=== PATIENT | female | born 1970 | race Two or more races ===

== ENCOUNTER → 2024-09-15 | Outpatient (CLI) | payer MEDICARE, MEDICAID, SELFPAY ==
--- NOTE | 2024-09-15 10:00 | XR_ITS ---
Examination: Breast ultrasound complete, bilateral Date and time of exam: September 15, 2024 0957 hours INDICATIONS: Mammogram 04/26/2024 right breast 12 mm focal asymmetry upper outer and left breast retroareolar focal asymmetry 20 mm Technique: Real-time grayscale ultrasonographic imaging bilateral breasts, including all 4 quadrants as well as nipple retroareolar and axillary regions. Findings: Sonographic images right breast 9:00 oval mass partially circumscribed 13 x 11 x 15 mm 11:00 oval mass with indistinct margins 8 x 6 x 7 mm Sonographic images left breast 2:00 oval mass lobular margins 12 x 6 x 9 mm IMPRESSION: BI-RADS Category 4: Suspicious for malignancy Suspicious mass 11:00 position right breast, biopsy is needed to say breast carcinoma This mass is amenable to ultrasound-guided breast biopsy for diagnosis Also 6 month bilateral breast sonography follow-up is needed to document stability of solid nodules described above
--- NOTE | 2024-09-15 11:00 | XR_ITS ---
Examination: Diagnostic digital mammography, bilateral Computer aided detection 3-D breast Tomosynthesis, bilateral Date and time of exam: September 15, 2024 1023 hours INDICATIONS: Mammogram 04/26/2024 12 mm focal asymmetry upper outer right breast posterior depth 20 mm focal asymmetry retroareolar region left breast Technique: Nonmagnified MLO, CC views of the breasts to been obtained, reconstructed from 3-D Tomosynthesis images. R2 computer aided detection program utilized for evaluation of suspicious masses and/or abnormal calcifications. 3-D Tomosynthesis images obtained. Findings: The breasts are heterogeneously dense, which may obscure small masses No suspicious nodule left breast on the spot compression views 11:00 nodule right breast is noted, best seen on the right breast sonogram today Impression: BI-RADS Category 4: Suspicious for malignancy Suspicious nodule 11:00 position right breast best depicted on the right breast sonogram today Biopsy of this nodule is needed to exclude breast carcinoma This nodule is amenable to ultrasound-guided breast biopsy for diagnosis
== END | disposition home or self-care (01) ==
LOC: CDIM 09:31
PROVIDERS: PCP Internal Medicine; Referring Provider Internal Medicine; Visit Provider Internal Medicine
DX: R92.343 Mammographic extreme density, bilateral breasts (principal); N63.11 Unspecified lump in the right breast, upper outer quadrant; N63.15 Unspecified lump in the right breast, overlapping quadrants; N63.21 Unspecified lump in the left breast, upper outer quadrant
CPT/HCPCS: 76641; 77062; 77066; G0279

== ENCOUNTER → 2024-10-06 | Outpatient (CLI) | payer MEDICARE, MEDICAID, SELFPAY ==
[2024-10-06 12:04] LABS: Basophils # (Auto) 0.1 Thou/mm3 (0.0-0.2); Basophils % (Auto) 1 % (0-2.5); Eosinophils # (Auto) 0.1 Thou/mm3 (0.0-0.5); Eosinophils % (Auto) 1 % (0-10); Hematocrit 36.6 % (36.0-46.0); Hemoglobin 11.7 g/dL (12.0-16.0); Immature Granulocytes % (Auto) 0 % (0-0); Immature Granulocytes Auto 0.02 Thou/mm3 (0.00-0.00); Lymphocytes # (Auto) 3.9 Thou/mm3 (1.0-4.8); Lymphocytes % (Auto) 46 % (10-50); Mean Corpuscular Hemoglobin 25.9 pg (25.0-35.0); Mean Corpuscular Volume 81 fL (80-100); Monocytes # (Auto) 0.8 Thou/mm3 (0.0-0.8); Monocytes % (Auto) 9 % (0-12); Neutrophils # (Auto) 3.6 Thou/mm3 (1.8-7.7); Neutrophils % (Auto) 43 % (37-80); Nucleated Red Blood Cell % 0 /100 WBC (0); Platelet Count 437 Thou/mm3 (140-440); RDW Standard Deviation 45.3 fL (36.4-46.3); Red Blood Count 4.51 Miln/mm3 (4.00-5.20); White Blood Count 8.5 Thou/mm3 (3.6-11.0)
[2024-10-06 12:14] LABS: Glucose Estimated Average 189 mg/dL (80-131); Hemoglobin A1C 8.2 % Hgb (4.8-6.0)
[2024-10-06 12:16] LABS: Vitamin B12 592 pg/mL (211-911)
[2024-10-06 12:26] LABS: Alanine Aminotransferase 11 U/L (10-49); Albumin, Serum 4.3 gm/dL (3.5-5.0); Albumin/Globulin Ratio 1.5 (1.2-2.2); Alkaline Phosphatase 86 U/L (46-116); Anion Gap 14 (7-16); Aspartate Amino Transferase 15 U/L (0-34); BUN/Creatinine Ratio 18 Ratio (12-20); Bilirubin,Total 0.6 mg/dL (0.3-1.2); Blood Urea Nitrogen 14 mg/dL (9-23); Calcium 10.1 mg/dL (8.3-10.6); Calcium (Corrected) 10.1 mg/dL (8.5-10.1); Carbon Dioxide 25.5 mMol/L (20.0-31.0); Cardiac Risk Estimate 2.8 RATIO (3.7-5.6); Chloride 103 mMol/L (98-107); Cholesterol 192 mg/dL (132-200); Creatinine (Component) 0.8 mg/dL (0.6-1.3); Globulin 2.9 gm/dL (2.3-3.5); Glucose 112 mg/dL (74-106); HDL Cholesterol 69 mg/dL (40-60); LDL Cholesterol,Calculated 102 mg/dL (0-130); Osmolality,Calculated 284 (275-295); Potassium 4.2 mMol/L (3.4-5.1); Sodium 142 mMol/L (136-145); Thyroid Stimulating Hormone 2.99 uIU/mL (0.55-4.78); Total Protein 7.2 gm/dL (5.7-8.2); Triglycerides 104 mg/dL (30-150); Uric Acid 3.7 mg/dL (3.1-7.8); eGFR > 60 See Note
== END | disposition home or self-care (01) ==
LOC: COPL 11:15
PROVIDERS: PCP Internal Medicine; Referring Provider Internal Medicine; Visit Provider Internal Medicine
DX: E11.9 Type 2 diabetes mellitus without complications (principal); I10 Essential (primary) hypertension; E78.5 Hyperlipidemia, unspecified; D51.9 Vitamin B12 deficiency anemia, unspecified; E55.9 Vitamin D deficiency, unspecified
CPT/HCPCS: 36415; 80053; 80061; 81001; 82306; 82607; 83036; 84443; 84550; 85025

== ENCOUNTER 2024-11-03 09:49 | Emergency (ER) | payer MEDICARE, MEDICAID, SELFPAY ==
[2024-11-03 10:29] VITALS: BP 149/72; PULSE 114; RESP 17; TEMP 36.9; O2SAT 98
--- NOTE | 2024-11-03 10:32 | XR_ITS ---
Examination: Humerus 2 views right Technique: Humerus, AP lateral 2 views Date and time of exam: November 03, 2024 1058 hours INDICATIONS: Patient fell today with injury to the arm, right arm pain. FINDINGS: Acute fracture humeral neck,. Fracture extends to the greater tuberosity humeral head with displaced fracture fragment IMPRESSION: Acute fractures humeral head and neck No shoulder dislocation
--- NOTE | 2024-11-03 10:32 | XR_ITS ---
Examination: Shoulder,right, 3 views Technique: Shoulder AP internal rotation, AP external rotation, Y view shoulder, 3 views Exam date and time :November 03, 2024 1058 hours INDICATIONS: Patient fell today with injury to the shoulder, shoulder pain. FINDINGS: Acute fracture humeral neck Fracture extends to the humeral head with displaced greater tuberosity of the humeral head IMPRESSION: Acute fractures humeral neck and head
--- NOTE | 2024-11-03 11:12 | PD.EDUPEX ---
Upper Extremity Injury RME/HPI General Chief Complaint: Extremity Injury, Upper Stated Complaint: CAN'T MOVE RIGHT ARM Time Seen by Provider: 11/03/24 10:13 Source: patient Arrival date/time: 11/03/24 09:49 This is a 54-year-old female presented to the emergency department with family member for complaints of right upper shoulder pain. According to the family member the patient was ambulating and her foot got caught on a rug falling directly on her right shoulder. According to the family member the patient was complaining of shoulder pain was given Tylenol however noticed swelling and bruising today prompting her ED visit. No other injuries or pain reported by patient. Mode of arrival: ambulatory Limitations: no limitations Related Data Home Medications ?Medication ?Instructions ?Recorded ?Confirmed atorvastatin 20 mg tablet (Lipitor) 20 mg PO HS #0 tabs 10/25/16 08/14/21 ergocalciferol (vitamin D2) 1,250 50,000 unit PO QWEEK #0 caps 10/25/16 08/14/21 mcg (50,000 unit) capsule (Vitamin D2) metformin 850 mg tablet 850 mg PO BID #0 tabs 10/25/16 08/14/21 (Glucophage) losartan 100 mg tablet 100 mg PO QDAY 08/14/21 08/14/21 omeprazole 20 mg capsule,delayed 20 mg PO BID 08/14/21 08/14/21 release sucralfate 100 mg/mL oral 1 g PO BID 08/14/21 08/14/21 suspension (Carafate) Previous Rx's ?Medication ?Instructions ?Recorded acetaminophen 325 mg tablet (Pain 650 mg (2 x 325 mg) PO QID PRN 11/03/24 Relief (acetaminophen)) pain #20 tabs Allergies Allergy/AdvReac Type Severity Reaction Status Date / Time No Known Allergies Allergy Verified 11/03/24 09:51 Review of Systems Review of Systems Systems Reviewed: All systems reviewed, normal except as documented Narrative Review of Systems: Gen: No fever, no chills, no weight loss EYES: No discharge, no visual changes, no pain HEENT: No ear pain, no congestion, no sore throat PULM: No shortness of breath, no cough, no congestion CV: No chest pain, no dyspnea on exertion, no palpitations GI: No nausea, no vomiting, no diarrhea, no pain, no constipation : No frequency, no urgency, no dysuria Musc/skel:+ Right arm shoulder pain, no back pain Skin: No rash Psyc: No hallucinations, no depression Heme/Lymph: No easy bleeding or bruising tendencies Neuro: No weakness, no headache ED Exam General Limitations: Present no limitations General appearance: Present alert and in no apparent distress Head Head exam: Present atraumatic Eye Eye exam: Present normal appearance, PERRL and EOMI ENT ENT exam: Present normal exam, normal oropharynx and mucous membranes moist Neck Neck exam: Present normal inspection, full ROM and trachea midline Chest Chest inspection: Present normal inspection and symmetric chest wall rise Respiratory Respiratory exam: Present normal lung sounds bilaterally Cardiovascular Cardiovascular exam: Present regular rate, normal rhythm and normal heart sounds Abdominal Exam Abdominal exam: Present soft and normal bowel sounds; Absent distention, tenderness or guarding Extremities Exam Extremities exam: Present full ROM Expanded Upper Extremity Exam Shoulder exam: Present tenderness (Right shoulder tenderness palpation. Large ecchymosis noted to bicep area) and swelling Back Exam Back exam: Present normal inspection and full ROM Neurological Exam Neurological exam: Present alert, oriented X3 and CN II-XII intact Psychiatric Psychiatric exam: Present normal affect and normal mood Skin Skin exam: Present warm, dry, intact and normal color Course Quality Measures none Orders Category Date Time Status sling [Splint / Immobilizer] STAT Care 11/03/24 11:36 Completed XR humerus RT min 2V Stat Exams 11/03/24 10:32 Completed XR shoulder RT min 2V Stat Exams 11/03/24 10:32 Completed Acetaminophen Tab [Tylenol ES Tab] Med 11/03/24 11:36 Discontinued 1,000 mg PO X1 ONE Vital Signs Vital signs: Vital Signs Temperature 98.4 F 11/03/24 10:29 Pulse Rate 114 H 11/03/24 10:29 Respiratory Rate 17 11/03/24 10:29 Blood Pressure 149/72 H 11/03/24 10:29 Pulse Oximetry (%) 98 11/03/24 10:29 Oxygen Delivery Method Room Air 11/03/24 10:29 Extremity Injury MDM Narrative MDM Narrative:: 54-year-old female evaluated in the emergency department for complaints of right shoulder pain her x-ray does demonstrate acute neck and head fracture of right humeral head without significant displacement. Patient does not currently demonstrate complications of fracture such as compartment syndrome, arterial or nerve injury. Rx: Sling and Swathe I did place a call out to Dr. Soto who will gladly see her in her office on Wednesday at 3 PM for evaluation. Patient will be discharge with strict return precautions and instructions to follow up with primary MD within 48 hours for further evaluation including referral to an orthopedist. Patient data External records reviewed:: [facility] previous records Clinical information provided by:: patient Social determinants that could affect healthcare access:: none Patient has the following chronic illnesses:: Hypertension, hyperlipidemia, diabetes, mental delay How is presenting disease/condition affected by chronic disease/condition?: no chronic disease Evaluation data The following diagnostics were reviewed and interpreted by me:: radiology exam(s) Lab and/or radiology exams considered but not ordered:: no Interpretation Summary: Examination: Humerus 2 views right Technique: Humerus, AP lateral 2 views Date and time of exam: November 03, 2024 1058 hours INDICATIONS: Patient fell today with injury to the arm, right arm pain. FINDINGS: Acute fracture humeral neck,. Fracture extends to the greater tuberosity humeral head with displaced fracture fragment IMPRESSION: Acute fractures humeral head and neck No shoulder dislocation Medications / Prescriptions Medications or Prescriptions considered but not ordered:: no Medication administrations:: Medication Administration History Discontinued Medications Acetaminophen (Acetaminophen 500 Mg Tablet) 1,000 mg PO X1 ONE Stop: 11/03/24 11:37 Last Admin: 11/03/24 11:41 Dose: 1,000 mg Documented By: no Consultations Consultation(s) initiated? (list below): Yes Consultation #1 (Physician, Specialty, Details): Consulted with Dr. Soto on-call orthopedic Time: 11:36 Diagnosis Upper Extremity Injury Differential Diagnosis: sprain and strain of wrist, fracture of wrist, dislocation of finger, Colles' fracture, fracture of hand, dislocation of shoulder, fracture of humerus and fracture of clavicle Most likely diagnosis given after review of the tests above:: Positive fracture humeral head right Admission Indicated Admission indicated?: not indicated Admission Request Was there a request for admission?: No Disposition Plan Disposition Plan: Discharge Discharge Attestation Discharge Attestation: The patient and all family members were given an opportunity to ask questions and understood the discharge instructions. Discharge instructions specifically effects, indications for sooner follow up or return to the emergency department, and the expected course of current diagnosis. Patient condition: Stable Discharge Plan Plan Patient Disposition: HOME (Self Care) Patient condition on transfer: Stable Prescriptions/Referrals Prescriptions/Med Rec: New acetaminophen [Pain Relief (acetaminophen)] 325 mg tablet 650 mg PO QID PRN (Reason: pain) Qty: 20 0RF No Action atorvastatin [Lipitor] 20 MG tablet 20 mg PO HS Qty: 0 metformin [Glucophage] 850 MG tablet 850 mg PO BID Qty: 0 ergocalciferol (vitamin D2) [Vitamin D2] 50,000 UNIT capsule 50,000 unit PO QWEEK Qty: 0 Patient Comments: GIVEN ON MONDAYS losartan 100 mg Tablet 100 mg PO QDAY sucralfate [Carafate] 100 mg/mL suspension 1 g PO BID omeprazole 20 MG capsule,delayed release(DR/EC) 20 mg PO BID Referrals: Jayro Soto MD [Physician] - In 1 week Polo Otero MD [Primary Care Provider] - In 1 week Problem List Clinical Impression: Accidental fall, Fracture of head of humerus Patient/Caregiver Discharge Instructions Discharge Activity: activity as tolerated Education Materials: ED Fracture, Shoulder Additional Instructions: You have an appointment with Dr. Soto on Wednesday at 3 PM. Your x-rays demonstrated a fracture of your upper right arm. Must keep your arm in the sling do not lift or move Take [id number] Tylenol or ibuprofen for pain Return to the emergency department this any worsening symptoms or change in condition. Print Language: Lao Stand Alone Forms: Sisi Award Info., Patient Portal Info Letter LANI/LUIS A Supervising Physician LANI/LUIS A Supervising Physician: Dr Yoder
[2024-11-03 11:39] VITALS: PULSE 107
[2024-11-03] MEDS: ACETAMINOPHEN 500 MG TABLET 1000 MG PO (11:41)
[2024-11-03 11:42] VITALS: BMI 26.9
== END 2024-11-03 13:30 | disposition home or self-care (01) ==
PROVIDERS: Emergency Provider Emergency Medicine; PCP Internal Medicine
DX: S42.291A Other displaced fracture of upper end of right humerus, initial encounter for closed fracture (principal); S42.211A Unspecified displaced fracture of surgical neck of right humerus, initial encounter for closed fracture; W19.XXXA Unspecified fall, initial encounter
CPT/HCPCS: 73030; 73060; 99283; A4565; A9270

== ENCOUNTER → 2024-12-21 | Outpatient (CLI) | payer MEDICARE, MEDICAID, SELFPAY ==
[2024-12-20 12:53] LABS: Basophils % (Auto) 1 % (0-2.5); Eosinophils # (Auto) 0.1 Thou/mm3 (0.0-0.5); Eosinophils % (Auto) 1 % (0-10); Hematocrit 42.7 % (36.0-46.0); Immature Granulocytes % (Auto) 0 % (0-0); Immature Granulocytes Auto 0.03 Thou/mm3 (0.00-0.00); Lymphocytes # (Auto) 2.7 Thou/mm3 (1.0-4.8); Lymphocytes % (Auto) 32 % (10-50); Mean Corpuscular HGB Conc 32.8 g/dl (31.0-37.0); Mean Corpuscular Hemoglobin 28.7 pg (25.0-35.0); Mean Corpuscular Volume 88 fL (80-100); Monocytes # (Auto) 0.7 Thou/mm3 (0.0-0.8); Monocytes % (Auto) 8 % (0-12); Neutrophils % (Auto) 59 % (37-80); Nucleated Red Blood Cell % 0 /100 WBC (0); Platelet Count 356 Thou/mm3 (140-440); RDW Standard Deviation 54.9 fL (36.4-46.3); Red Blood Count 4.88 Miln/mm3 (4.00-5.20); White Blood Count 8.4 Thou/mm3 (3.6-11.0)
[2024-12-20 13:44] LABS: Partial Thromboplastin Time 24.3 Seconds (22.0-36.0); Prothrombin Time 10.7 Seconds (9.0-12.2)
--- NOTE | 2024-12-21 09:30 | XR_ITS ---
Examinations: Ultrasound-guided percutaneous breast biopsy, right breast 11:00 nodule Right breast sonography limited INDICATIONS: Right breast sonogram September 15, 2024 BI-RADS 4 suspicious mass 11:00 position right breast. Exam date and time: December 21, 2024 1006 hours. Informed consent provided. Technique: A timeout was completed verifying correct patient, procedure, site, positioning, and special equipment if applicable Informed consent provided. The patient was placed in a supine position for the breast biopsy. Sonographic images of the breast were performed for localization of the suspicious nodule The patient's breast was prepped and draped in sterile fashion. Maximum sterile barrier technique, hand hygiene, ultrasound sterile technique 1% lidocaine was used to anesthetize the skin and breast adjacent to the suspicious nodule. Utilizing ultrasonographic guidance, 8 core biopsies were obtained of the suspicious nodule utilizing an 18-gauge BioPince needle. The specimens appears satisfactory. US guided breast biopsy marker placement. Estimated blood loss 3 cc. The patient tolerated the procedure well and there were no complications. Impression: Successful ultrasound-guided percutaneous breast biopsy, right breast 11:00 nodule. Ultrasound guided breast biopsy marker placement.
== END | disposition home or self-care (01) ==
LOC: SIRX 09:15
PROVIDERS: Radiology Diagnostic Radiology; PCP Internal Medicine; Referring Provider Internal Medicine; Visit Provider Internal Medicine
DX: N63.11 Unspecified lump in the right breast, upper outer quadrant (principal); Z01.812 Encounter for preprocedural laboratory examination
CPT/HCPCS: 19083; 36415; 85025; 85610; 85730; A4648

== ENCOUNTER → 2025-04-17 | Outpatient (CLI) | payer MEDICARE, MEDICAID, SELFPAY ==
[2025-04-17 09:36] LABS: Basophils # (Auto) 0.1 Thou/mm3 (0.0-0.2); Basophils % (Auto) 1 % (0-2.5); Eosinophils # (Auto) 0.1 Thou/mm3 (0.0-0.5); Eosinophils % (Auto) 1 % (0-10); Hematocrit 45.4 % (36.0-46.0); Hemoglobin 14.8 g/dL (12.0-16.0); Immature Granulocytes Auto 0.01 Thou/mm3 (0.00-0.00); Lymphocytes # (Auto) 2.8 Thou/mm3 (1.0-4.8); Lymphocytes % (Auto) 39 % (10-50); Mean Corpuscular HGB Conc 32.6 g/dl (31.0-37.0); Mean Corpuscular Hemoglobin 29.4 pg (25.0-35.0); Mean Corpuscular Volume 90 fL (80-100); Monocytes # (Auto) 0.6 Thou/mm3 (0.0-0.8); Monocytes % (Auto) 9 % (0-12); Neutrophils # (Auto) 3.5 Thou/mm3 (1.8-7.7); Neutrophils % (Auto) 50 % (37-80); Nucleated Red Blood Cell # 0.00 Thou/mm3 (0.00-0.00); Nucleated Red Blood Cell % 0 /100 WBC (0); Platelet Count 435 Thou/mm3 (140-440); RDW Standard Deviation 52.0 fL (36.4-46.3); Red Blood Count 5.03 Miln/mm3 (4.00-5.20); White Blood Count 7.1 Thou/mm3 (3.6-11.0)
[2025-04-17 09:39] LABS: INR 1.0 (0.9-1.3); Partial Thromboplastin Time 26.8 Seconds (22.0-36.0); Prothrombin Time 10.6 Seconds (9.0-12.2)
--- NOTE | 2025-04-17 10:30 | XR_ITS ---
Examinations: Ultrasound-guided percutaneous breast biopsy, right breast 11:00 nodule Right breast sonography limited INDICATIONS: BI-RADS 4 suspicious nodule 11:00 position right breast on ultrasound September 15, 2024. Exam date and time: April 17, 2025 1038 hours. Informed consent provided. Technique: A timeout was completed verifying correct patient, procedure, site, positioning, and special equipment if applicable Informed consent provided. The patient was placed in a supine position for the breast biopsy. Sonographic images of the breast were performed for localization of the suspicious nodule The patient's breast was prepped and draped in sterile fashion. Maximum sterile barrier technique, hand hygiene, ultrasound sterile technique 1% lidocaine was used to anesthetize the skin and breast adjacent to the suspicious nodule. Utilizing ultrasonographic guidance, 8 core biopsies were obtained of the suspicious nodule utilizing an 18-gauge BioPince needle. The specimens appears satisfactory. Estimated blood loss 3 cc. The patient tolerated the procedure well and there were no complications. Impression: Successful ultrasound-guided percutaneous breast biopsy, right breast 11:00 nodule.
== END | disposition home or self-care (01) ==
LOC: SIRX 08:19
PROVIDERS: Radiology Diagnostic Radiology; PCP Internal Medicine; Referring Provider Internal Medicine; Visit Provider Internal Medicine
DX: D24.1 Benign neoplasm of right breast (principal); Z01.812 Encounter for preprocedural laboratory examination
CPT/HCPCS: 19083; 36415; 85025; 85610; 85730

== ENCOUNTER → 2025-04-26 | Outpatient (CLI) | payer MEDICARE, MEDICAID, SELFPAY ==
[2025-04-26 11:24] LABS: Glucose Estimated Average 171 mg/dL (80-131); Hemoglobin A1C 7.6 % Hgb (4.8-6.0)
[2025-04-26 11:34] LABS: Alanine Aminotransferase 11 U/L (10-49); Albumin, Serum 4.8 gm/dL (3.5-5.0); Albumin/Globulin Ratio 1.7 (1.2-2.2); Alkaline Phosphatase 83 U/L (46-116); Anion Gap 13 (7-16); Aspartate Amino Transferase 20 U/L (0-34); BUN/Creatinine Ratio 15 Ratio (12-20); Bilirubin,Total 0.6 mg/dL (0.3-1.2); Blood Urea Nitrogen 12 mg/dL (9-23); Calcium 10.3 mg/dL (8.3-10.6); Calcium (Corrected) 10.3 mg/dL (8.5-10.1); Carbon Dioxide 22.2 mMol/L (20.0-31.0); Cardiac Risk Estimate 2.8 RATIO (3.7-5.6); Chloride 104 mMol/L (98-107); Cholesterol 223 mg/dL (132-200); Creatinine (Component) 0.8 mg/dL (0.6-1.3); Globulin 2.9 gm/dL (2.3-3.5); Glucose 144 mg/dL (74-106); HDL Cholesterol 79 mg/dL (40-60); LDL Cholesterol,Calculated 122 mg/dL (0-130); Osmolality,Calculated 280 (275-295); Potassium 4.6 mMol/L (3.4-5.1); Sodium 139 mMol/L (136-145); Total Protein 7.7 gm/dL (5.7-8.2); Triglycerides 111 mg/dL (30-150); eGFR > 60 See Note
== END | disposition home or self-care (01) ==
LOC: COPL 10:09
PROVIDERS: PCP Internal Medicine; Referring Provider Internal Medicine; Visit Provider Internal Medicine
DX: E11.9 Type 2 diabetes mellitus without complications (principal); I10 Essential (primary) hypertension; E78.5 Hyperlipidemia, unspecified
CPT/HCPCS: 36415; 80053; 80061; 83036